=== PATIENT | male | born 1985 | race Caucasian/White ===

== ENCOUNTER 2019-06-02 19:30 | Emergency (ER) | payer OTHER ==
[~2019-06-02] VITALS: Ht 154.9 cm; Wt 59.0 kg
[2019-06-02] MEDS ORDERED: IBUPROFEN 800800 MG PO (21:05)
[2019-06-02 21:22] VITALS: BP 143/93
== END 2019-06-02 21:23 | disposition home or self-care (01) ==
LOC: M.ERS 19:30
DX: S33.5XXA Sprain of ligaments of lumbar spine, initial encounter (principal); F17.210 Nicotine dependence, cigarettes, uncomplicated; V49.49XA Driver injured in collision with other motor vehicles in traffic accident, initial encounter; Y93.89 Activity, other specified; Y92.89 Other specified places as the place of occurrence of the external cause; Y99.8 Other external cause status